=== PATIENT | female | born 1960 | race Caucasian/White ===

== ENCOUNTER 2018-07-29 20:11 | Emergency (ER) | payer OTHER, SELFPAY ==
[2018-07-29 20:20] VITALS: BP 100/64; PULSE 116; RESP 19; TEMP 38.3; O2SAT 90; BMI 27.4
--- NOTE | 2018-07-29 20:36 | DI.RAD.S_ITS ---
PROCEDURE: XR CHEST 1V INDICATIONS: suspected sepsis TECHNIQUE: One view of the chest was acquired. COMPARISON: [facility], , CHEST 2 VIEW, 04/17/2016, 11:07. FINDINGS: Surgical changes and devices: Lower neck surgical clips Lungs and pleura: Lungs are clear. No pleural effusions or pneumothorax. Mediastinum: Mediastinal contours appear normal. Heart size is normal. Bones and chest wall: No suspicious bony lesions. Overlying soft tissues appear unremarkable. IMPRESSION: No evidence acute pulmonary process. Dictated by: Will Araiza M.D. on 07/29/2018 at 21:21 Approved by: Will Araiza M.D. on 07/29/2018 at 21:21
--- NOTE | 2018-07-29 20:39 | ED_ITS ---
HPI - General Adult General Chief complaint: Dizziness Stated complaint: DIZZY LIGHT HEADED Time Seen by Provider: 07/29/18 20:38 Source: patient Mode of arrival: ambulatory Limitations: no limitations History of Present Illness HPI narrative: 58-year-old female who states that she has been sick since Franco's Day of this year reports today because she felt very tired and dizzy and lightheaded. She states just did not feel well. Did not take anything for her symptoms prior to arrival. Related Data Home Medications Medication Instructions Recorded Confirmed ALBUTEROL SULFATE (Ventolin / 2 puff INH Q 4H #0 05/20/08 Proventil) Loratadine (Claritin) 10 mg PO Q DAY #0 05/20/08 levothyroxine [Synthroid] 100 mcg PO QAM #0 05/20/08 atorvastatin [Lipitor] 10 mg PO HS #0 04/17/16 lisinopril 2.5 mg PO QDAY #0 04/17/16 metformin 850 mg PO BIDCC #0 04/17/16 montelukast 10 mg PO QDAY #0 04/17/16 Allergies Allergy/AdvReac Type Severity Reaction Status Date / Time No Known Drug Allergies Allergy Verified 07/29/18 21:07 Review of Systems Constitutional Reports chills, Reports fatigue, Reports fever(s), Denies headache(s), Reports lethargy, Reports malaise and Reports weakness ENT Ears, Nose, Mouth, and Throat: Denies headache(s) Cardiovascular Denies chest pain and Denies dyspnea Respiratory Denies dyspnea Gastrointestinal Gastrointestinal: Denies abdominal pain, Denies change in stool character, Denies nausea and Denies vomiting Genitourinary Denies dysuria Musculoskeletal Reports myalgias and Denies arthralgias Integumentary/Breasts Denies rash Neurologic Denies confusion, Denies headache(s) and Reports weakness Psychiatric Denies confusion Endocrine Reports fatigue Hematologic/Lymphatic Denies easy bleeding and Denies easy bruising Allergic/Immunologic Denies urticaria PFSH Medical History Hypertension (Acute) Hypothyroid (Acute) Social History Smoking Status: Never smoker Social History Smoking Status: Never smoker Exam Initial Vital Signs Initial Vital Signs: Vital Signs Temperature 101 F H 07/29/18 20:20 Pulse Rate 116 H 07/29/18 20:20 Respiratory Rate 19 07/29/18 20:20 Blood Pressure 100/64 07/29/18 20:20 Pulse Oximetry 90 L 07/29/18 20:20 Const General: cooperative, comfortable, well developed, well groomed and No acute distress Orientation: alert, awake and oriented x3 HENMT Head: normal to inspection and normocephalic Resp Effort & Inspection: normal respiratory effort Auscultation: clear to auscultation bilaterally Cardio Rate: tachycardic Rhythm: regular rhythm Pulses: radial pulses present GI Inspection: non-distended Palpation: soft Skin Lesions: no lesions Rashes: no rashes Neuro General: alert, awake and oriented x3 Cognition: normal cognition Speech: speech normal Gait: normal gait Motor: muscle tone normal throughout Sensory Exam: no sensory deficits noted Extrem General: normal to inspection and capillary refill normal Psych Appearance: grossly normal and well kempt Course Orders Ordered: ED Orders 07/29/18 20:40 Influenza A and B by PCR Rapid Stat 07/29/18 20:50 Complete Blood Count AUTO DIFF Stat Comprehensive Metabolic Panel Stat Lactate (Lactic Acid) Stat Lipase Stat Partial Thromboplastin Time Stat Procalcitonin Stat Prothrombin Time INR Stat 07/29/18 21:05 Blood Culture Stat Discontinued Medications Acetaminophen (Tylenol) 650 mg PO NOW ONE Stop: 07/29/18 20:41 Last Admin: 07/29/18 21:08 Dose: 650 mg Sodium Chloride (Normal Saline 0.9%) 1,000 mls @ 1,000 mls/hr IV BOLUS ONE Stop: 07/29/18 21:33 Last Infusion: 07/29/18 22:50 Dose: 0 mls/hr Admin: 07/29/18 21:08 Dose: 1,000 mls/hr Vital Signs - 8 hr 07/29/18 22:29 07/29/18 22:32 07/29/18 22:47 Temperature 99.2 F 99.2 F Pulse Rate 96 H 99 H 91 H Respiratory Rate 17 18 18 Blood Pressure [Right Arm] 105/63 86/56 L 98/65 Pulse Oximetry 92 100 96 07/29/18 22:50 Temperature 99.2 F Pulse Rate Respiratory Rate Blood Pressure [Right Arm] Pulse Oximetry Medical Decision Making Lab Data Lab results reviewed: Yes I reviewed the patient's lab results. Result diagrams: 07/29/18 20:50 07/29/18 20:50 Lab Results 07/29/18 07/29/18 07/29/18 Range/Units 20:40 20:50 20:50 WBC 11.6 H (4.5-11.0) X10^3/uL RBC 4.93 (4.0-5.2) X10^6/uL Hgb 14.2 (12.0-16.0) g/dL Hct 43.7 (36-46) % MCV 88.6 (80-100) fL MCH 28.7 (26-34) PG MCHC 32.4 (30-36) % RDW 13.5 (11.6-14.8) % Plt Count 231 (150-400) X10^3/uL Neut % (Auto) 85.6 H (50-75) % Lymph % (Auto) 5.3 L (25-40) % [place] % (Auto) 7.3 (3-14) % Eos % (Auto) 1.5 L (2-4) % Baso % (Auto) 0.3 (0-2) % Neut # (Auto) 9900 H (0675-2405) /uL Lymph # (Auto) 600 L (5890-6830) /uL [place] # (Auto) 800 (0-900) /uL Eos # (Auto) 200 (0-450) /uL Baso # (Auto) 0 (0-100) /uL PT 11.5 (10.1-12.7) SECONDS INR 1.0 (0.9-1.3) APTT 29 (26.4-36.2) SECONDS Sodium (137-145) mmol/L Potassium (3.4-5.1) mmol/L Chloride (98-107) mmol/L Carbon Dioxide (22-32) mmol/L BUN (7-17) mg/dL Creatinine (0.52-1.04) mg/dL Estimated GFR (>60) mL/min BUN/Creatinine Ratio (6-22) Glucose (70-100) mg/dL Lactate (0.7-2.1) mmol/L Calcium (8.4-10.2) mg/dL Total Bilirubin (0.2-1.3) mg/dL AST (14-36) IU/L ALT (9-52) IU/L Alkaline Phosphatase (38-126) U/L Total Protein (6.3-8.2) g/dL Albumin (3.5-5.0) g/dL Globulin (1.7-4.1) g/dL Albumin/Globulin Ratio (1.0-2.8) Lipase (23-300) U/L Procalcitonin (<0.5) ng/mL Influenza A & B (PCR) Negative (Negative) 07/29/18 07/29/18 07/29/18 Range/Units 20:50 20:50 20:50 WBC (4.5-11.0) X10^3/uL RBC (4.0-5.2) X10^6/uL Hgb (12.0-16.0) g/dL Hct (36-46) % MCV (80-100) fL MCH (26-34) PG MCHC (30-36) % RDW (11.6-14.8) % Plt Count (150-400) X10^3/uL Neut % (Auto) (50-75) % Lymph % (Auto) (25-40) % [place] % (Auto) (3-14) % Eos % (Auto) (2-4) % Baso % (Auto) (0-2) % Neut # (Auto) (4225-0657) /uL Lymph # (Auto) (5178-7257) /uL [place] # (Auto) (0-900) /uL Eos # (Auto) (0-450) /uL Baso # (Auto) (0-100) /uL PT (10.1-12.7) SECONDS INR (0.9-1.3) APTT (26.4-36.2) SECONDS Sodium 135 L (137-145) mmol/L Potassium 4.0 (3.4-5.1) mmol/L Chloride 95 L (98-107) mmol/L Carbon Dioxide 28 (22-32) mmol/L BUN 13 (7-17) mg/dL Creatinine 0.60 (0.52-1.04) mg/dL Estimated GFR > 60.0 (>60) mL/min BUN/Creatinine Ratio 21.7 (6-22) Glucose 171 H (70-100) mg/dL Lactate 1.8 (0.7-2.1) mmol/L Calcium 9.5 (8.4-10.2) mg/dL Total Bilirubin 0.8 (0.2-1.3) mg/dL AST 28 (14-36) IU/L ALT 39 (9-52) IU/L Alkaline Phosphatase 77 (38-126) U/L Total Protein 7.5 (6.3-8.2) g/dL Albumin 4.5 (3.5-5.0) g/dL Globulin 3.0 (1.7-4.1) g/dL Albumin/Globulin Ratio 1.5 (1.0-2.8) Lipase 115 (23-300) U/L Procalcitonin 0.06 (<0.5) ng/mL Influenza A & B (PCR) (Negative) Urine Dip Bedside Urine Glucose Negative Bedside Urine Bilirubin - Negative Bedside Urine Ketone - Negative Urine Specific [place] 1.025 Bedside Urine Occult Blood - Negative Bedside Urine pH 6.0 Bedside Urine Protein +/- 15 Bedside Urine Urobilinogen - Negative Bedside Urine Nitrite - Negative Bedside Urine Leukocytes - Negative Esterase Point of care testing: Urine Dip Bedside Urine Glucose Negative Bedside Urine Bilirubin - Negative Bedside Urine Ketone - Negative Urine Specific [place] 1.025 Bedside Urine Occult Blood - Negative Bedside Urine pH 6.0 Bedside Urine Protein +/- 15 Bedside Urine Urobilinogen - Negative Bedside Urine Nitrite - Negative Bedside Urine Leukocytes - Negative Esterase Imaging Data Chest x-ray: Radiologist's impression: Patient: Radha Muñoz [facility]#: [id number] : 1960Acct:[id number] Age/Sex: 58 / FDate of Service: 07/29/18 Loc: ED Accession Number: [id number] Procedure: XR chest 1V Ordering Provider: Hal Nolan D.O. PROCEDURE: XR CHEST 1V INDICATIONS: suspected sepsis TECHNIQUE: One view of the chest was acquired. COMPARISON: [facility], , CHEST 2 VIEW, 04/17/2016, 11:07. FINDINGS: Surgical changes and devices: Lower neck surgical clips Lungs and pleura: Lungs are clear. No pleural effusions or pneumothorax. Mediastinum: Mediastinal contours appear normal. Heart size is normal. Bones and chest wall: No suspicious bony lesions. Overlying soft tissues appear unremarkable. IMPRESSION: No evidence acute pulmonary process. Dictated by: Will Araiza M.D. on 07/29/2018 at 21:21 Approved by: Will Araiza M.D. on 07/29/2018 at 21:21 ECG Data Attestation: I personally reviewed and interpreted this ECG as follows: Prior ECG tracings: not available for review Interpretation: Sinus tachycardia ventricular rate of 116 normal axis Normal QRS Normal QTC No ST T wave changes MDM Narrative Medical decision making narrative: patient's chest x-ray is unremarkable, urine is unremarkable, has a benign abdominal exam, no skin changes concerning for cellulitis, flu is negative. Lactate unremarkable, procalcitonin is unremarkable. Patient states she felt much better after the fluids and the Tylenol here in the ER. Her heart rate was less than 100 after the fluids. Blood cultures were obtained. I do not have a source of infection however doubt sepsis. Will hold on any antibiotics for now. Patient was given return precautions. She expressed understanding and agreement plan. Discharge Plan Departure Patient Disposition: Home Clinical Impression: Fever Qualifiers: Fever type: unspecified Qualified Code(s): R50.9 - Fever, unspecified Discharge Date/Time: 07/29/18 22:52 Interventions: ED Discharge Assessment Last Done: 07/29/18 22:48 Instructions: DI for Fever (Symptom) -- Adult Activity Restrictions/Additional Instructions: Take Tylenol and/or Motrin for any fevers. Be sure you are increase your fluid intake. Return to the emergency department for any new or worsening symptoms Prescriptions: No Action levothyroxine [Synthroid] 100 MCG tablet 100 mcg PO QAM Qty: 0 RF: 0 Loratadine (Claritin) 10 mg PO Q DAY Qty: 0 RF: 0 ALBUTEROL SULFATE (Ventolin / Proventil) 2 puff INH Q 4H Qty: 0 RF: 0 atorvastatin [Lipitor] 10 MG tablet 10 mg PO HS Qty: 0 RF: 0 metformin 850 MG tablet 850 mg PO BIDCC Qty: 0 RF: 0 montelukast 10 MG tablet 10 mg PO QDAY Qty: 0 RF: 0 lisinopril 2.5 MG tablet 2.5 mg PO QDAY Qty: 0 RF: 0 Stand Alone Forms: Work Release Note
[2018-07-29 21:00] VITALS: BP 95/52; PULSE 115; RESP 22; O2SAT 90
[2018-07-29 21:01] LABS: Add Manual Diff / Slide Review NO; Basophils Absolute Auto 0 /uL (0-100); Basophils Percent Auto 0.3 % (0-2); Eosinophils Absolute Auto 200 /uL (0-450); Eosinophils Percent Auto 1.5 % (2-4); Hematocrit 43.7 % (36-46); Hemoglobin 14.2 g/dL (12.0-16.0); Lymphocytes Absolute Auto 600 /uL (1100-4500); Lymphocytes Percent Auto 5.3 % (25-40); Mean Corpuscular HGB Conc 32.4 % (30-36); Mean Corpuscular Hemoglobin 28.7 PG (26-34); Mean Corpuscular Volume 88.6 fL (80-100); Monocytes Absolute Auto 800 /uL (0-900); Monocytes Percent Auto 7.3 % (3-14); Neutrophils Absolute Auto 9900 /uL (1500-7000); Neutrophils Percent Auto 85.6 % (50-75); Platelet Count 231 X10^3/uL (150-400); Red Blood Cell Count 4.93 X10^6/uL (4.0-5.2); Red Cell Distribution Width 13.5 % (11.6-14.8); White Blood Cell Count 11.6 X10^3/uL (4.5-11.0)
[2018-07-29] MEDS: ACETAMINOPHEN 325 MG TABLET 650 MG PO (21:08)
[2018-07-29] MEDS: SODIUM CHLORIDE 0.9% 1,000 ML 1000 ML IV (21:08)
[2018-07-29 21:12] LABS: Prothrombin Time 11.5 SECONDS (10.1-12.7)
[2018-07-29 21:15] LABS: Influenza A and B by PCR Rapid Negative (Negative)
[2018-07-29 21:15] LABS: PTT Partial Thromboplastin Tim 29 SECONDS (26.4-36.2)
[2018-07-29 21:18] LABS: Lactate (Lactic Acid) 1.8 mmol/L (0.7-2.1)
[2018-07-29 21:19] LABS: Alanine Aminotransferase 39 IU/L (9-52); Albumin 4.5 g/dL (3.5-5.0); Albumin Globulin Ratio 1.5 (1.0-2.8); Alkaline Phosphatase 77 U/L (38-126); Aspartate Aminotransferase 28 IU/L (14-36); BUN Creatinine Ratio 21.7 (6-22); Bilirubin Total 0.8 mg/dL (0.2-1.3); Blood Urea Nitrogen 13 mg/dL (7-17); Calcium 9.5 mg/dL (8.4-10.2); Carbon Dioxide 28 mmol/L (22-32); Chloride 95 mmol/L (98-107); Estimated Glomerular Filt Rate > 60.0 mL/min (>60); Glucose 171 mg/dL (70-100); HEMOLYSIS < 15 (0-50); Lipase 115 U/L (23-300); Sodium 135 mmol/L (137-145); Total Protein 7.5 g/dL (6.3-8.2)
[2018-07-29 21:42] LABS: Procalcitonin 0.06 ng/mL (<0.5)
[2018-07-29 22:29] VITALS: BP 105/63; PULSE 96; RESP 17; TEMP 37.3; O2SAT 92
[2018-07-29 22:32] VITALS: BP 86/56; PULSE 99; RESP 18; TEMP 37.3; O2SAT 100
[2018-07-29 22:47] VITALS: BP 98/65; PULSE 91; RESP 18; O2SAT 96
[2018-07-29 22:50] VITALS: TEMP 37.3
== END 2018-07-29 22:52 | disposition home or self-care (01) ==
PROVIDERS: Emergency Provider Emergency Medicine
DX: R50.9 Fever, unspecified (principal); R00.0 Tachycardia, unspecified
CPT/HCPCS: 36415; 36591; 71045; 80053; 81003; 83605; 83690; 84145; 85025; 85610; 85730; 87040; 87400; 93005; 93010; 96360; 96361; 99284; 99285

== ENCOUNTER 2018-11-23 03:56 | Emergency (ER) | payer OTHER, SELFPAY ==
[2018-11-23 04:05] VITALS: BP 126/66; PULSE 104; RESP 18; TEMP 36.6; O2SAT 90; BMI 28.3
--- NOTE | 2018-11-23 04:11 | DI.RAD.S_ITS ---
PROCEDURE: XR CHEST 2V INDICATIONS: Shortness of breath / cough TECHNIQUE: 2 views of the chest were acquired. COMPARISON: [facility], CR, XR CHEST 1V, 07/29/2018, 20:40. FINDINGS: Surgical changes and devices: Surgical clips are redemonstrated at the thoracic inlet. Lungs and pleura: Patchy pulmonary opacities are present at the left lung base which are new when compared with the study dated 07/29/18. These are likely within the lingular base. The right lung is clear. No pleural effusion or pneumothorax. Mediastinum: Mediastinal contours are normal. Heart size is normal. Bones and chest wall: No suspicious bony abnormalities. Soft tissues appear unremarkable. IMPRESSION: Trace pulmonary radiopacities presumably within the lingula. Differential considerations include aspiration, infection, and atelectasis. Dictated by: Maryjane Prado M.D. on 11/23/2018 at 8:13 Approved by: Maryjane Prado M.D. on 11/23/2018 at 8:14
[2018-11-23 04:15] VITALS: PULSE 95; RESP 18; O2SAT 93
[2018-11-23] MEDS: ALBUTEROL/IPRATROPIUM 3 ML AMPUL INH (04:17)
[2018-11-23 04:23] VITALS: O2SAT 92
--- NOTE | 2018-11-23 04:26 | ED.ASTHMA ---
HPI - Asthma General Chief Complaint: Asthma Stated Complaint: scratchy throat headache feels lungs have fluid Time Seen by Provider: 11/23/18 03:58 Source: patient Mode of arrival: ambulatory Limitations: no limitations History of Present Illness HPI Narrative: 58-year-old female nonsmoker with history of asthma presents with difficulty in breathing, wheeze, shortness of breath since motor longer earlier in the day. She denies any fever chills. She vomited once after and extensive coughing fit. She has been using her Proventil at home without much in the way of relief. MD complaint: asthma attack and wheezing Onset (ago): hour(s) Severity: moderate Context: allergen exposure Associated symptoms: productive cough Asthma History: childhood onset Treatments Prior to Arrival: inhaled bronchodilator Related Data Current Asthma Therapy: inhaled bronchodilator Home Medications Medication Instructions Recorded Confirmed ALBUTEROL SULFATE (Ventolin / 2 puff INH Q 4H #0 05/20/08 Proventil) Loratadine (Claritin) 10 mg PO Q DAY #0 05/20/08 levothyroxine [Synthroid] 100 mcg PO QAM #0 05/20/08 atorvastatin [Lipitor] 10 mg PO HS #0 04/17/16 lisinopril 2.5 mg PO QDAY #0 04/17/16 metformin 850 mg PO BIDCC #0 04/17/16 montelukast 10 mg PO QDAY #0 04/17/16 Previous Rx's Medication Instructions Recorded doxycycline hyclate 100 mg PO BID #20 tab 11/23/18 prednisone 20 mg PO DAILY #5 tab 11/23/18 Allergies Allergy/AdvReac Type Severity Reaction Status Date / Time No Known Drug Allergies Allergy Verified 11/23/18 04:23 Review of Systems Constitutional Denies chills, Denies fever(s), Denies lethargy and Denies weakness Eyes Denies change in vision, Denies eye discharge, Denies irritation and Denies loss of vision ENT Ears, Nose, Mouth, and Throat: Denies change in voice, Denies neck pain and Denies sore throat Cardiovascular Denies chest pain, Denies irregular heart rhythm, Denies lightheadedness, Denies palpitations, Reports dyspnea, Denies dyspnea on exertion and Denies orthopnea Respiratory Reports cough, Reports pain with cough, Reports dyspnea, Denies dyspnea on exertion and Reports wheezing Gastrointestinal Gastrointestinal: Denies abdominal pain, Denies change in bowel habits, Denies diarrhea, Denies nausea and Denies vomiting Genitourinary Denies hematuria, Denies flank pain, Denies urinary incontinence and Denies urinary urgency Musculoskeletal Denies neck pain Integumentary/Breasts Denies pruritus, Denies erythema, Denies rash and Denies wounds Neurologic Denies confusion, Denies loss of vision and Denies weakness Psychiatric Denies anxiety, Denies confusion, Denies depression, Denies homicidal ideation and Denies suicidal ideation Endocrine Denies palpitations Hematologic/Lymphatic Denies easy bruising Allergic/Immunologic Reports wheezing Exam Narrative Exam Narrative: GENERAL: 58-year-old female appears stated age, prolonged expiratory phase with expiratory wheeze HEAD: Atraumatic. Normocephalic. No temporal or scalp tenderness. EYES: Pupils equal round and reactive. Extraocular motions intact. No scleral icterus. No injection or drainage. ENT: Nose without bleeding, purulent drainage or septal hematoma. Throat without erythema, tonsillar hypertrophy or exudate. Uvula midline. Airway patent. NECK: Trachea midline. No JVD or lymphadenopathy. Supple, nontender, no meningeal signs. CARDIOVASCULAR: Regular rate and rhythm without murmurs, gallops, or rubs. RESPIRATORY: Prolonged expiratory phase with wheezes in all wang, decreased breath sounds throughout. No rales or rhonchi GASTROINTESTINAL: Abdomen soft, non-tender, nondistended. No hepato-splenomegaly, or palpable masses. No guarding. EXTREMITIES: No clubbing, cyanosis, or edema. No joint tenderness, effusion, or edema noted. BACK: Nontender without deformity or crepitance. No flank tenderness. NEURO: AOx3. SKIN: No rash or erythema. Initial Vital Signs Initial Vital Signs: Vital Signs Temperature 97.9 F 11/23/18 04:05 Pulse Rate 104 H 11/23/18 04:05 Respiratory Rate 18 11/23/18 04:05 Blood Pressure 126/66 11/23/18 04:05 Pulse Oximetry 90 L 11/23/18 04:05 [facility] Medical History Hypertension (Acute) Hypothyroid (Acute) Social History Smoking Status: Never smoker Social History Smoking Status: Never smoker Course Orders Ordered: ED Orders 11/23/18 04:11 Consult to Respiratory Therapy Evaluate & Treat XR chest 2V Stat 11/23/18 04:15 B Type Natriuretic Peptide Stat Basic Metabolic Panel Stat Complete Blood Count AUTO DIFF Stat Lactate (Lactic Acid) Stat Magnesium Stat Procalcitonin Stat Troponin & CK Cardiac Panel Stat 11/23/18 04:35 Blood Culture Stat Discontinued Medications Albuterol/Ipratropium (Duoneb) 3 ml INH NOW ONE Stop: 11/23/18 04:11 Last Admin: 11/23/18 04:17 Dose: 3 ml Methylprednisolone (Solu-Medrol 125 Mg Vial) 125 mg IV NOW ONE Stop: 11/23/18 04:11 Last Admin: 11/23/18 04:28 Dose: 125 mg Reevaluation(s) Reevaluation #1: tremendous improvement after the above stated therapies Vital Signs - 8 hr 11/23/18 04:05 11/23/18 04:15 11/23/18 04:23 Temperature 97.9 F Pulse Rate 104 H 95 H Respiratory Rate 18 18 Blood Pressure 126/66 Blood Pressure [Left Arm] Pulse Oximetry 90 L 93 92 11/23/18 04:38 Temperature Pulse Rate 92 H Respiratory Rate 19 Blood Pressure Blood Pressure [Left Arm] 115/75 Pulse Oximetry 92 MDM - Asthma Lab Data Result diagrams: 11/23/18 04:15 11/23/18 04:15 Lab Results 11/23/18 11/23/18 11/23/18 Range/Units 04:15 04:15 04:15 WBC 9.8 (4.5-11.0) X10^3/uL RBC 4.89 (4.0-5.2) X10^6/uL Hgb 14.4 (12.0-16.0) g/dL Hct 43.2 (36-46) % MCV 88.4 (80-100) fL MCH 29.4 (26-34) PG MCHC 33.3 (30-36) % RDW 13.4 (11.6-14.8) % Plt Count 251 (150-400) X10^3/uL Neut % (Auto) 73.3 (50-75) % Lymph % (Auto) 18.3 L (25-40) % [place] % (Auto) 5.9 (3-14) % Eos % (Auto) 2.1 (2-4) % Baso % (Auto) 0.4 (0-2) % Neut # (Auto) 7200 H (0531-5856) /uL Lymph # (Auto) 1800 (2257-7595) /uL [place] # (Auto) 600 (0-900) /uL Eos # (Auto) 200 (0-450) /uL Baso # (Auto) 0 (0-100) /uL Sodium 141 (137-145) mmol/L Potassium 3.8 (3.4-5.1) mmol/L Chloride 101 (98-107) mmol/L Carbon Dioxide 31 (22-32) mmol/L BUN 13 (7-17) mg/dL Creatinine 0.50 L (0.52-1.04) mg/dL Estimated GFR > 60.0 (>60) mL/min BUN/Creatinine Ratio 26.0 H (6-22) Glucose 173 H (70-100) mg/dL Lactate (0.7-2.1) mmol/L Calcium 9.2 (8.4-10.2) mg/dL Magnesium 1.8 (1.6-2.3) mg/dL Total Creatine Kinase 26 L (30-135) U/L CK-MB (CK-2) TNP CK-MB (CK-2) Rel Index TNP Troponin I < 0.012 (0.01-0.034) ng/mL B-Natriuretic Peptide < 100 (<100) Procalcitonin < 0.05 (<0.5) ng/mL 11/23/18 Range/Units 04:15 WBC (4.5-11.0) X10^3/uL RBC (4.0-5.2) X10^6/uL Hgb (12.0-16.0) g/dL Hct (36-46) % MCV (80-100) fL MCH (26-34) PG MCHC (30-36) % RDW (11.6-14.8) % Plt Count (150-400) X10^3/uL Neut % (Auto) (50-75) % Lymph % (Auto) (25-40) % [place] % (Auto) (3-14) % Eos % (Auto) (2-4) % Baso % (Auto) (0-2) % Neut # (Auto) (1762-7531) /uL Lymph # (Auto) (0960-2300) /uL [place] # (Auto) (0-900) /uL Eos # (Auto) (0-450) /uL Baso # (Auto) (0-100) /uL Sodium (137-145) mmol/L Potassium (3.4-5.1) mmol/L Chloride (98-107) mmol/L Carbon Dioxide (22-32) mmol/L BUN (7-17) mg/dL Creatinine (0.52-1.04) mg/dL Estimated GFR (>60) mL/min BUN/Creatinine Ratio (6-22) Glucose (70-100) mg/dL Lactate 1.9 (0.7-2.1) mmol/L Calcium (8.4-10.2) mg/dL Magnesium (1.6-2.3) mg/dL Total Creatine Kinase (30-135) U/L CK-MB (CK-2) CK-MB (CK-2) Rel Index Troponin I (0.01-0.034) ng/mL B-Natriuretic Peptide (<100) Procalcitonin (<0.5) ng/mL Discharge Plan Departure Patient Disposition: Home Clinical Impression: Asthma with acute exacerbation Qualifiers: Asthma severity: moderate Asthma persistence: unspecified Qualified Code(s): J45.901 - Unspecified asthma with (acute) exacerbation Pneumonia Qualifiers: Pneumonia type: due to unspecified organism Laterality: left Lung location: lower lobe of lung Qualified Code(s): J18.1 - Lobar pneumonia, unspecified organism Instructions: DI for Asthma -- Adult Activity Restrictions/Additional Instructions: *You have been diagnosed with [asthma exacerbation, possible pneumonia] *What to do: *Take medications as directed *Follow up with your primary care provider in 2-3 days, call for an appointment. Let them know you were seen in the Emergency Department and that we ask that you be seen in follow up *Return to ER if you should have any new, worsening or concerning symptoms Prescriptions: New doxycycline hyclate 100 mg tablet 100 mg PO BID Qty: 20 RF: 0 prednisone 20 mg tablet 20 mg PO DAILY Qty: 5 RF: 0 No Action levothyroxine [Synthroid] 100 MCG tablet 100 mcg PO QAM Qty: 0 RF: 0 Loratadine (Claritin) 10 mg PO Q DAY Qty: 0 RF: 0 ALBUTEROL SULFATE (Ventolin / Proventil) 2 puff INH Q 4H Qty: 0 RF: 0 atorvastatin [Lipitor] 10 MG tablet 10 mg PO HS Qty: 0 RF: 0 metformin 850 MG tablet 850 mg PO BIDCC Qty: 0 RF: 0 montelukast 10 MG tablet 10 mg PO QDAY Qty: 0 RF: 0 lisinopril 2.5 MG tablet 2.5 mg PO QDAY Qty: 0 RF: 0
[2018-11-23] MEDS: methylPREDNISolone 125 MG/2 ML VIAL IV (04:28)
[2018-11-23 04:37] LABS: Add Manual Diff / Slide Review NO; Basophils Absolute Auto 0 /uL (0-100); Basophils Percent Auto 0.4 % (0-2); Eosinophils Absolute Auto 200 /uL (0-450); Eosinophils Percent Auto 2.1 % (2-4); Hematocrit 43.2 % (36-46); Hemoglobin 14.4 g/dL (12.0-16.0); Lymphocytes Absolute Auto 1800 /uL (1100-4500); Lymphocytes Percent Auto 18.3 % (25-40); Mean Corpuscular HGB Conc 33.3 % (30-36); Mean Corpuscular Hemoglobin 29.4 PG (26-34); Mean Corpuscular Volume 88.4 fL (80-100); Monocytes Absolute Auto 600 /uL (0-900); Monocytes Percent Auto 5.9 % (3-14); Neutrophils Absolute Auto 7200 /uL (1500-7000); Neutrophils Percent Auto 73.3 % (50-75); Platelet Count 251 X10^3/uL (150-400); Red Blood Cell Count 4.89 X10^6/uL (4.0-5.2); Red Cell Distribution Width 13.4 % (11.6-14.8); White Blood Cell Count 9.8 X10^3/uL (4.5-11.0)
[2018-11-23 04:38] VITALS: BP 115/75; PULSE 92; RESP 19; O2SAT 92
[2018-11-23 04:41] LABS: Lactate (Lactic Acid) 1.9 mmol/L (0.7-2.1)
[2018-11-23 04:42] LABS: Blood Urea Nitrogen 13 mg/dL (7-17); Calcium 9.2 mg/dL (8.4-10.2); Carbon Dioxide 31 mmol/L (22-32); Chloride 101 mmol/L (98-107); Creatine Kinase 26 U/L (30-135); Estimated Glomerular Filt Rate > 60.0 mL/min (>60); Glucose 173 mg/dL (70-100); HEMOLYSIS < 15 (0-50); Magnesium 1.8 mg/dL (1.6-2.3); Potassium 3.8 mmol/L (3.4-5.1); Sodium 141 mmol/L (137-145)
[2018-11-23 04:53] LABS: Troponin I < 0.012 ng/mL (0.01-0.034)
[2018-11-23 05:04] LABS: B Type Natriuretic Peptide < 100 (<100)
[2018-11-23 05:10] LABS: Procalcitonin < 0.05 ng/mL (<0.5)
[2018-11-23 06:06] VITALS: BP 115/75; PULSE 96; RESP 20; O2SAT 93
== END 2018-11-23 06:07 | disposition home or self-care (01) ==
PROVIDERS: Emergency Provider Emergency Medicine
DX: J45.901 Unspecified asthma with (acute) exacerbation (principal); J18.1 Lobar pneumonia, unspecified organism
CPT/HCPCS: 36415; 36591; 71046; 80048; 82550; 83605; 83735; 83880; 84145; 84484; 85025; 87040; 94640; 96374; 99283; 99284; J2930

== ENCOUNTER 2019-08-13 08:44 | Emergency (ER) | payer OTHER, SELFPAY ==
--- NOTE | 2019-08-13 08:51 | ED.ASTHMA ---
HPI - Asthma General Chief Complaint: Shortness of Breath/Dyspnea Stated Complaint: asthma Time Seen by Provider: 08/13/19 08:45 Source: patient Mode of arrival: Ambulatory Limitations: no limitations History of Present Illness HPI Narrative: 59-year-old female nonsmoker with history of asthma presents with increasing shortness of breath and cough for the past 2 days. Patient denies any recent travel or exposure to persons under suspicion for drawn about hours. She has had no headache or sore throat. She denies any chest pain, nausea, vomiting or diarrhea. She has been using her albuterol at home and is hoping for a prescription for prednisone. Patient states her baseline pulse ox is upper 80s to low 90s on a good day. MD complaint: asthma attack and shortness of breath Onset (ago): day(s) Severity: moderate Context: none known Associated symptoms: dry cough Treatments Prior to Arrival: inhaled bronchodilator Related Data Current Asthma Therapy: inhaled bronchodilator Home Medications Medication Instructions Recorded Confirmed ALBUTEROL SULFATE (Ventolin / 2 puff INH Q 4H #0 05/20/08 Proventil) Loratadine (Claritin) 10 mg PO Q DAY #0 05/20/08 levothyroxine [Synthroid] 100 mcg PO QAM #0 05/20/08 atorvastatin [Lipitor] 10 mg PO HS #0 04/17/16 lisinopril 2.5 mg PO QDAY #0 04/17/16 metformin 850 mg PO BIDCC #0 04/17/16 montelukast 10 mg PO QDAY #0 04/17/16 Previous Rx's Medication Instructions Recorded doxycycline hyclate 100 mg PO BID #20 tab 11/23/18 prednisone 20 mg PO DAILY #5 tab 11/23/18 albuterol sulfate 2 inh INHALATION Q4H PRN #1 each 08/13/19 prednisone 20 mg PO DAILY #5 tab 08/13/19 Allergies Allergy/AdvReac Type Severity Reaction Status Date / Time No Known Drug Allergies Allergy Verified 11/23/18 04:23 Review of Systems Constitutional Constitutional: Denies chills, Denies fatigue, Denies fever(s), Denies frequent falls, Denies lethargy and Denies weakness Eyes Eyes: Denies change in vision, Denies eye discharge, Denies irritation and Denies loss of vision ENT Ears, Nose, Mouth, and Throat: Denies change in voice, Denies dizziness, Denies neck pain, Denies sore throat and Denies throat swelling Cardiovascular Cardiovascular: Denies chest pain, Denies irregular heart rhythm, Denies lightheadedness, Denies palpitations, Reports dyspnea, Denies dyspnea on exertion and Denies orthopnea Respiratory Respiratory: Reports cough, Reports dyspnea, Denies dyspnea on exertion and Reports wheezing Gastrointestinal Gastrointestinal: Denies abdominal pain, Denies change in bowel habits, Denies diarrhea, Denies nausea and Denies vomiting Genitourinary Genitourinary: Denies hematuria, Denies flank pain, Denies urinary incontinence and Denies urinary urgency Musculoskeletal Musculoskeletal: Denies back pain, Denies muscle weakness, Denies neck pain, Denies numbness and Denies tingling Integumentary/Breasts Skin/Breast: Denies pruritus, Denies erythema, Denies rash and Denies wounds Neurologic Neurologic: Denies behavioral changes, Denies confusion, Denies dizziness, Denies frequent falls, Denies loss of vision, Denies numbness, Denies tingling and Denies weakness Psychiatric Psychiatric: Denies anxiety, Denies behavioral changes, Denies confusion, Denies depression, Denies homicidal ideation and Denies suicidal ideation Endocrine Endocrine: Denies fatigue, Denies flushing and Denies palpitations Hematologic/Lymphatic Hematologic/Lymphatic: Denies easy bruising Allergic/Immunologic Allergic/Immunologic: Denies urticaria, Denies throat swelling and Reports wheezing Patient History Medical History Hypertension (Acute) Hypothyroid (Acute) Social History Smoking Status: Never smoker Smoking Status: Never smoker Substance Use Type: does not use Exam Narrative Exam Narrative: GENERAL: [59] year old patient appears stated age. Well-nourished, well-developed patient, in mild distress. HEAD: Atraumatic. Normocephalic. EYES: Pupils equal round and reactive. Extraocular motions intact. No scleral icterus. No injection or drainage. ENT: Nose without bleeding, purulent drainage. Throat without erythema, tonsillar hypertrophy or exudate. Airway patent. NECK: Trachea midline. Non tender CARDIOVASCULAR: Regular rate and rhythm without murmurs, gallops, or rubs. RESPIRATORY: Decreased breath sounds bilaterally with prolonged expiratory phase and expiratory wheeze GASTROINTESTINAL: Abdomen soft, non-tender, nondistended. EXTREMITIES: No edema or joint tenderness. BACK: Nontender without deformity or crepitance. No flank tenderness. NEURO: AOx3. SKIN: No rash or erythema of visible areas Initial Vital Signs Initial Vital Signs: Vital Signs Temperature 99.1 F 08/13/19 09:03 Pulse Rate 113 H 08/13/19 09:03 Respiratory Rate 24 08/13/19 09:03 Blood Pressure 135/86 08/13/19 09:03 Pulse Oximetry 90 L 08/13/19 09:03 Course Orders Ordered: ED Orders 08/13/19 09:18 XR chest 1V Stat 08/13/19 09:20 Influenza A & B (PCR) Stat 08/13/19 10:37 CT chest wo con Stat Discontinued Medications Prednisone (Deltasone) 40 mg PO NOW ONE Stop: 08/13/19 09:19 Last Admin: 08/13/19 09:27 Dose: 40 mg Documented by: ANTONELLA Vital Signs Vital signs: Vital Signs - 8 hr 08/13/19 09:03 08/13/19 11:29 Temperature 99.1 F Pulse Rate 113 H 105 H Respiratory Rate 24 16 Blood Pressure 135/86 Blood Pressure [Right Arm] 129/75 Pulse Oximetry 90 L 89 L MDM - Asthma Lab Data Labs: Lab Results 08/13/19 Range/Units 09:20 Influenza A (RT-PCR) Flu a negative (NEGATIVE) Influenza B (RT-PCR) Flu b negative (NEGATIVE) Imaging Data Chest x-ray: Radiologist's Impression: Radha Muñoz Cheko 59 F [address] [address] XRay Report Signed Patient: Radha Muñoz AMR#: [id number] : 1960Acct:[id number] Age/Sex: 59 / FDate of Service: 08/13/19 Loc: ED Accession Number: [id number] Procedure: XR chest 1V Ordering Provider: Max Camacho D.O. PROCEDURE: XR CHEST 1V INDICATIONS: cough TECHNIQUE: One view of the chest was acquired. COMPARISON: [facility], CR, XR CHEST 1V, 07/29/2018, 20:40. [facility], CR, XR CHEST 2V, 11/23/2018, 4:27. FINDINGS: Surgical changes and devices: Post surgical changes at the base of the neck are present. Lungs and pleura: Mild consolidation at the left lung base is identified, which is similar to the prior study, but new since 07/29/18. No effusion or pneumothorax is evident. Mediastinum: Mediastinal contours appear normal. Heart size is normal. Bones and chest wall: No suspicious bony lesions. Overlying soft tissues appear unremarkable. IMPRESSION: Atelectasis versus pneumonia at the left lung base. Dictated by: Richy Corral M.D. on 08/13/2019 at 9:09 Approved by: Richy Corral M.D. on 08/13/2019 at 9:10 CT scan - chest: Radiologist's Impression: Radha Muñoz 59 F 1960 [place] [address] CT Scan Report Signed Patient: Radha Muñoz AMR#: [id number] : 1960Acct:[id number] Age/Sex: 59 / FDate of Service: 08/13/19 Loc: ED Accession Number: [id number] Procedure: CT chest wo con Ordering Provider: Max Camacho D.O. PROCEDURE: CT CHEST WO CON INDICATIONS: fever, cough, SOB TECHNIQUE: Noncontrast 5 mm thick sections acquired from the pulmonary apices to the posterior costophrenic angles. 1 mm lung window, 5 mm thick coronal and sagittal and 7 mm axial MIP reformats were then acquired. For radiation dose reduction, the following was used: automated exposure control, adjustment of mA and/or kV according to patient size. COMPARISON: [facility], CR, XR CHEST 2V, 11/23/2018, 4:27. FINDINGS: Image quality: Diagnostic. Lungs and pleura: Patchy areas of groundglass attenuation are identified within it the lingula and right middle lobe. There may also be developing groundglass attenuation within the perihilar region of the right upper lobe. There may also be developing at patchy groundglass attenuation within the lateral margin of the left lower lobe. There is no lung mass. Mediastinum: Heart size is normal. No pericardial effusion. No mediastinal adenopathy by size criteria. Ever, borderline prominent mediastinal and hilar lymph nodes appear to be present. Thoracic aorta and central pulmonary arteries are normal in size. Esophagus is normal in caliber. No hiatal hernia. Bones and chest wall: No suspicious bony lesions. No vertebral body compression fractures. Postoperative changes at the base of the neck suggest prior thyroidectomy. No axillary or supraclavicular adenopathy by size criteria. Abdomen: Included portions of the upper abdomen demonstrate the liver to be hypodense when compared to the spleen. The liver may be enlarged. There is a questionable calcified gallstone. However, the gallbladder is not imaged. IMPRESSION: Subtle developing areas of groundglass attenuation within the lingula and right middle lobe suggests a developing multifocal atypical pneumonia. Please correlate clinically to exclude the possibility of COVID-19. Dictated by: Richy Corral M.D. on 08/13/2019 at 10:26 Approved by: Richy Corral M.D. on 08/13/2019 at 10:31 Discharge Plan Departure Patient Disposition: Home Clinical Impression: Viral pneumonia Asthma with exacerbation Qualifiers: Asthma severity: moderate Asthma persistence: persistent Qualified Code(s): J45.41 - Moderate persistent asthma with (acute) exacerbation Discharge Date/Time: 08/13/19 12:10 Instructions: Atypical Pneumonia Activity Restrictions/Additional Instructions: *You have been diagnosed with [ viral pneumonia, which based on your symptoms, labs and imaging is highly suspicious for coronavirus] *What to do: * per recommendations from the CDC and the [facility] Department of Health * stay home except to get medical care. Restrict activities outside your home, except for getting medical care. Do not go to work, school, or public areas. Avoid using public transportation, ride sharing, or taxis. * separate herself from other people in your home. * call ahead before visiting your doctor * Wear a facemask * Cover your coughs and sneezes * Clean your hands often * Avoid sharing household items * Clean all high-touch services every day * Monitor your symptoms and seek prompt medical attention if your illness is worsening, particularly with difficulty in breathing. Discussed continuing home isolation * for individuals with symptoms who are confirmed or suspected cases of COVID-19 and are directed to care for themselves at home, discontinue home isolation under the following conditions: 1. At least 72 hours have passed since recovery, defined as resolution of fever without the use of fever reducing medications, and improvement in respiratory symptoms (cough, shortness of breath) AND, 2. At least 7 days have passed since symptoms 1st appeared Individuals with laboratory confirmed COVID-19 who have not had any symptoms may discontinue home isolation when at least 7 days have passed since the date of their 1st COVID-19 diagnostic test and have had no subsequent illness Prescriptions: New prednisone 20 mg tablet 20 mg PO DAILY Qty: 5 RF: 0 albuterol sulfate 90 mcg/actuation aerosol powdr breath activated 2 inh INHALATION Q4H PRN (Reason: shortness of breath or wheezing) Qty: 1 RF: 0 No Action levothyroxine [Synthroid] 100 MCG tablet 100 mcg PO QAM Qty: 0 RF: 0 Loratadine (Claritin) 10 mg PO Q DAY Qty: 0 RF: 0 ALBUTEROL SULFATE (Ventolin / Proventil) 2 puff INH Q 4H Qty: 0 RF: 0 atorvastatin [Lipitor] 10 MG tablet 10 mg PO HS Qty: 0 RF: 0 metformin 850 MG tablet 850 mg PO BIDCC Qty: 0 RF: 0 montelukast 10 MG tablet 10 mg PO QDAY Qty: 0 RF: 0 lisinopril 2.5 MG tablet 2.5 mg PO QDAY Qty: 0 RF: 0 doxycycline hyclate 100 mg tablet 100 mg PO BID Qty: 20 RF: 0 prednisone 20 mg tablet 20 mg PO DAILY Qty: 5 RF: 0 Referrals: Miscellaneous,Doctor, [Primary Care Provider] - ED Sign-out Cosign ED Attending Cristiane Attestation: I was immediately available in the department for consultation. This documentation has been reviewed and I agree with assessment and plan. Supervised by Max Camacho DO
[2019-08-13 09:03] VITALS: BP 135/86; PULSE 113; RESP 24; TEMP 37.3; O2SAT 90
--- NOTE | 2019-08-13 09:18 | DI.RAD.S_ITS ---
PROCEDURE: XR CHEST 1V INDICATIONS: cough TECHNIQUE: One view of the chest was acquired. COMPARISON: [facility], CR, XR CHEST 1V, 07/29/2018, 20:40. [facility], CR, XR CHEST 2V, 11/23/2018, 4:27. FINDINGS: Surgical changes and devices: Post surgical changes at the base of the neck are present. Lungs and pleura: Mild consolidation at the left lung base is identified, which is similar to the prior study, but new since 07/29/18. No effusion or pneumothorax is evident. Mediastinum: Mediastinal contours appear normal. Heart size is normal. Bones and chest wall: No suspicious bony lesions. Overlying soft tissues appear unremarkable. IMPRESSION: Atelectasis versus pneumonia at the left lung base. Dictated by: Richy Corral M.D. on 08/13/2019 at 9:09 Approved by: Richy Corral M.D. on 08/13/2019 at 9:10
[2019-08-13] MEDS: predniSONE 20 MG TABLET 40 MG PO (09:27)
[2019-08-13 10:00] LABS: Influenza A - CEPHEID Flu A NEGATIVE (NEGATIVE); Influenza B - CEPHEID Flu B NEGATIVE (NEGATIVE)
--- NOTE | 2019-08-13 10:37 | DI.CT.S_ITS ---
PROCEDURE: CT CHEST WO CON INDICATIONS: fever, cough, SOB TECHNIQUE: Noncontrast 5 mm thick sections acquired from the pulmonary apices to the posterior costophrenic angles. 1 mm lung window, 5 mm thick coronal and sagittal and 7 mm axial MIP reformats were then acquired. For radiation dose reduction, the following was used: automated exposure control, adjustment of mA and/or kV according to patient size. COMPARISON: [facility], CR, XR CHEST 2V, 11/23/2018, 4:27. FINDINGS: Image quality: Diagnostic. Lungs and pleura: Patchy areas of groundglass attenuation are identified within it the lingula and right middle lobe. There may also be developing groundglass attenuation within the perihilar region of the right upper lobe. There may also be developing at patchy groundglass attenuation within the lateral margin of the left lower lobe. There is no lung mass. Mediastinum: Heart size is normal. No pericardial effusion. No mediastinal adenopathy by size criteria. Ever, borderline prominent mediastinal and hilar lymph nodes appear to be present. Thoracic aorta and central pulmonary arteries are normal in size. Esophagus is normal in caliber. No hiatal hernia. Bones and chest wall: No suspicious bony lesions. No vertebral body compression fractures. Postoperative changes at the base of the neck suggest prior thyroidectomy. No axillary or supraclavicular adenopathy by size criteria. Abdomen: Included portions of the upper abdomen demonstrate the liver to be hypodense when compared to the spleen. The liver may be enlarged. There is a questionable calcified gallstone. However, the gallbladder is not imaged. IMPRESSION: Subtle developing areas of groundglass attenuation within the lingula and right middle lobe suggests a developing multifocal atypical pneumonia. Please correlate clinically to exclude the possibility of COVID-19. Dictated by: Richy Corral M.D. on 08/13/2019 at 10:26 Approved by: Richy Corral M.D. on 08/13/2019 at 10:31
[2019-08-13 11:29] VITALS: BP 129/75; PULSE 105; RESP 16; O2SAT 89
[2019-08-15 18:07] LABS: COVID19 Sendout Not Detected (Not Detected)
== END 2019-08-13 12:10 | disposition home or self-care (01) ==
PROVIDERS: Emergency Provider Emergency Medicine
DX: J12.9 Viral pneumonia, unspecified (principal); R50.9 Fever, unspecified; R05 Cough; R06.02 Shortness of breath
CPT/HCPCS: 71045; 71250; 87502; 87635; 99283; 99284

== ENCOUNTER 2021-03-15 14:10 | Emergency (ER) | payer OTHER, SELFPAY ==
[2021-03-15 14:28] VITALS: BP 137/64; PULSE 109; RESP 18; TEMP 36.3; O2SAT 95; BMI 26.6
[2021-03-15 16:30] LABS: Bacteria Urine Moderate (10-30); Culture Indicated Urine Cult Not Indicated; RBC Urine None Seen (0-5/HPF); Squamous Epithelial Cell Urine 5-10 /HPF (0-5/HPF); WBC Urine 1-5/HPF (0-5/HPF)
--- NOTE | 2021-03-15 17:12 | ED.FEMALEGU ---
HPI - Female Genitourinary General Chief complaint: Urogenital-Female Stated complaint: Swollen knot in vaginal area Time Seen by Provider: 03/15/21 16:50 Source: patient Mode of arrival: Ambulatory Limitations: no limitations History of Present Illness HPI Narrative: 60-year-old female nonsmoker with history of asthma, hyperlipidemia presents with her daughter and a chief complaint of a bulging mass in her vagina that is been present for some time. It seems to be gradually getting worse and interferes with her ability to urinate or have bowel movements. She states that she urinates frequently but often times feels like she has not been able to empty her bladder. She denies fever chills, blood in her urine or back pain. Additionally when she has bowel movements she feels like the bulge gets worse and it seems to interfere. She denies any pain, she has no vaginal bleeding or discharge. 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 She denies any trauma or injury Related Data Home Medications Medication Instructions Recorded Confirmed ALBUTEROL SULFATE (Ventolin / 2 puff INH Q 4H #0 05/20/08 Proventil) Loratadine (Claritin) 10 mg PO Q DAY #0 05/20/08 levothyroxine 100 mcg tablet 100 mcg PO QAM #0 05/20/08 (Synthroid) atorvastatin 10 mg tablet (Lipitor) 10 mg PO HS #0 04/17/16 lisinopril 2.5 mg tablet 2.5 mg PO QDAY #0 04/17/16 metformin 850 mg tablet 850 mg PO BIDCC #0 04/17/16 montelukast 10 mg tablet 10 mg PO QDAY #0 04/17/16 Previous Rx's Medication Instructions Recorded doxycycline hyclate 100 mg tablet 100 mg PO BID #20 tab 11/23/18 prednisone 20 mg tablet 20 mg PO DAILY #5 tab 11/23/18 albuterol sulfate 90 mcg/actuation 2 inh INHALATION Q4H PRN #1 each 08/13/19 breath activated powder inhaler prednisone 20 mg tablet 20 mg PO DAILY #5 tab 08/13/19 Allergies Allergy/AdvReac Type Severity Reaction Status Date / Time No Known Drug Allergies Allergy Verified 03/15/21 14:28 Review of Systems Review of Systems Narrative: GENERAL: Denies chills, fatigue, malaise, fever, sweats. HEENT: Denies sinus pain, ear pain, sore throat, difficulty swallowing, dizziness. RESPIRATORY: Denies dyspnea, cough, wheezing, hemoptysis, sputum. CARDIOVASCULAR: Denies chest pain, palpitations, orthopnea, edema, GASTROINTESTINAL: See HPI MUSCULOSKELETAL: denies weakness, joint pain, or bony pain SKIN: Denies rash, skin lesions, or other NEUROLOGIC: Denies weakness, headache, numbness, change in speech, confusion, seizures, incoordination. PSYCHIATRIC: No concerning psychosocial issues. 12 point review of systems is negative except for those stated above Patient History Medical History Hypertension Hypothyroid alcohol intake frequency: holidays/special occasions only Substance Use Type: does not use Exam Narrative Exam Narrative: GEN: AOx3 and in mild distress EYES: Pupils are equal, round, and reactive to light and accommodation. Extraoccular muscles are intact bilaterally. There is no subconjunctival hemorrhage or exudate. CHEST: Lungs are clear to auscultation bilaterally and free of wheezes, rales, or rhonchi. Heart rate is regular rhythm, there are no murmurs, clicks, rubs, or gallops. There is no chest wall tenderness. ABD: Abdomen is soft and nontender. There is no guarding or rebound. Bowel sounds are normal in all 4 quadrants. There is no mass or organomegaly. PELVIC: cystocele noted, easily reduced. No pain, drainage or bleeding. Performed with patient's permission and female nursing retail helper at the bedside EXT: Full painless ROM of all extremities with no loss of sensation or strength. SKIN: Warm, pink, and dry. No erythema or rash Initial Vital Signs Initial Vital Signs: Vital Signs Temperature 97.3 F L 03/15/21 14:28 Pulse Rate 109 H 03/15/21 14:28 Respiratory Rate 18 03/15/21 14:28 Blood Pressure 137/64 03/15/21 14:28 Pulse Oximetry 95 03/15/21 14:28 Course Orders Ordered: ED Orders 03/15/21 16:00 Urine Microscopic Stat Vital Signs Vital signs: Vital Signs - 8 hr 03/15/21 14:28 Temperature 97.3 F L Pulse Rate 109 H Respiratory Rate 18 Blood Pressure 137/64 Pulse Oximetry 95 MDM - Female Genitourinary Lab Data Labs: Lab Results 10/23/21 Range/Units 16:00 Urine RBC None seen (0-5/HPF) Urine WBC 1-5/hpf (0-5/HPF) Ur Squamous Epith Cells 5-10 /hpf H (0-5/HPF) Urine Bacteria Moderate (10-30) H (None) Ur Culture Indicated? Cult not indicated Urine Dip Bedside Urine Glucose 1000 mg/dl Bedside Urine Bilirubin - Negative Bedside Urine Ketone - Negative Urine Specific [place] 1.020 Bedside Urine Occult Blood - Negative Bedside Urine pH 6.0 Bedside Urine Protein - Negative Bedside Urine Urobilinogen - Negative Bedside Urine Nitrite - Negative Bedside Urine Leukocytes - Negative Esterase Discharge Plan Departure Patient Disposition: Home Clinical Impression: Bladder cystocele Qualifiers: Cystocele location: midline Qualified Code(s): N81.11 - Cystocele, midline Instructions: DI for Cystocele/Rectocele Activity Restrictions/Additional Instructions: *You have been diagnosed with [cystocele] as we discussed, your history and physical exam are most consistent with a condition in which your pelvic floor his weekend allowing your bladder to drop down into your vaginal vault. *What to do: *Please continue to take your regular medications as directed. [ ] New medication prescriptions sent to your pharmacy: [ ] [ ] New medication written as a paper prescription [x ] No new medications given *Please follow up with your primary care provider in 2-3 days, call for an appointment. Let them know you were seen in the Emergency Department and that we ask that you be seen in follow up. We will electronically transmit a record of today's note if your PCP is in our system * also, as we discussed I will give you the contact information for our on-call personnel director who would be another good place to follow up *If you do not have a primary care provider please contact the [facility] Resource line at [phone]. They will ask some questions about your medical history and help get you set up with a doctor in the community. *Return to Emergency Department if you should have any new, worsening or concerning symptoms, such as [fever greater than 101 F, shaking chills, worsening pain, persistent vomiting or other bothersome symptoms] Prescriptions: No Action levothyroxine [Synthroid] 100 MCG tablet 100 mcg PO QAM Qty: 0 RF: 0 Loratadine (Claritin) 10 mg PO Q DAY Qty: 0 RF: 0 ALBUTEROL SULFATE (Ventolin / Proventil) 2 puff INH Q 4H Qty: 0 RF: 0 atorvastatin [Lipitor] 10 MG tablet 10 mg PO HS Qty: 0 RF: 0 metformin 850 MG tablet 850 mg PO BIDCC Qty: 0 RF: 0 montelukast 10 MG tablet 10 mg PO QDAY Qty: 0 RF: 0 lisinopril 2.5 MG tablet 2.5 mg PO QDAY Qty: 0 RF: 0 prednisone 20 mg tablet 20 mg PO DAILY Qty: 5 RF: 0 albuterol sulfate 90 mcg/actuation aerosol powdr breath activated 2 inh INHALATION Q4H PRN (Reason: shortness of breath or wheezing) Qty: 1 RF: 0 doxycycline hyclate 100 mg tablet 100 mg PO BID Qty: 20 RF: 0 prednisone 20 mg tablet 20 mg PO DAILY Qty: 5 RF: 0 Referrals: [facility] Resources [Outside] Miscellaneous,DoctorMD [Primary Care Provider] - Jose G Grajeda MD [Physician] -
== END 2021-03-15 18:08 | disposition home or self-care (01) ==
PROVIDERS: Emergency Provider Emergency Medicine
DX: N81.11 Cystocele, midline (principal)
CPT/HCPCS: 81003; 81015; 99282; 99283

== ENCOUNTER 2021-08-13 11:18 | Emergency (ER) | payer OTHER, SELFPAY ==
[2021-08-13 11:21] VITALS: BP 114/52; PULSE 108; RESP 16; O2SAT 95; BMI 23.3
--- NOTE | 2021-08-13 11:25 | DI.RAD.S_ITS ---
PROCEDURE: XR CHEST 1V INDICATIONS: chest pain TECHNIQUE: One view of the chest was acquired. COMPARISON: [facility], CT, CT CHEST WO CON, 08/13/2019, 10:50. [facility], CR, XR CHEST 1V, 08/13/2019, 9:29. [facility], CR, XR CHEST 2V, 11/23/2018, 4:27. FINDINGS: Surgical changes and devices: Thyroidectomy. Lungs and pleura: Left basilar opacity are likely scars or atelectasis. No pleural effusions or pneumothorax. Mediastinum: Mediastinal contours appear normal. Heart size is normal. Bones and chest wall: No suspicious bony lesions. Overlying soft tissues appear unremarkable. IMPRESSION: Left basilar opacity are likely scars or atelectasis. Dictated by: Ricardo Vences M.D. on 08/13/2021 at 11:54 Approved by: Ricardo Vences M.D. on 08/13/2021 at 11:56
[2021-08-13 11:50] LABS: Add Manual Diff / Slide Review NO; Basophils Absolute Auto 100 /uL (0-100); Basophils Percent Auto 0.4 % (0-2); Eosinophils Absolute Auto 100 /uL (0-450); Eosinophils Percent Auto 0.8 % (2-4); Hematocrit 39.3 % (36-46); Hemoglobin 13.4 g/dL (12.0-16.0); Lymphocytes Absolute Auto 1700 /uL (1100-4500); Lymphocytes Percent Auto 13.6 % (25-40); Mean Corpuscular HGB Conc 34.1 % (30-36); Mean Corpuscular Hemoglobin 29.2 PG (26-34); Mean Corpuscular Volume 85.4 fL (80-100); Monocytes Absolute Auto 900 /uL (0-900); Monocytes Percent Auto 7.7 % (3-14); Neutrophils Absolute Auto 9400 /uL (1500-7000); Neutrophils Percent Auto 77.5 % (50-75); Platelet Count 365 X10^3/uL (150-400); White Blood Cell Count 12.2 X10^3/uL (4.5-11.0)
[2021-08-13 11:51] LABS: INR 1.1 (0.9-1.3); Prothrombin Time 11.9 SECONDS (10.1-12.7)
[2021-08-13 11:55] LABS: PTT Partial Thromboplastin Tim 30 SECONDS (26.4-36.2)
[2021-08-13 11:59] LABS: Alanine Aminotransferase 11 IU/L (<35); Albumin 4.2 g/dL (3.5-5.0); Albumin Globulin Ratio 1.2 (1.0-2.8); Alkaline Phosphatase 78 U/L (38-126); Aspartate Aminotransferase 18 IU/L (14-36); BUN Creatinine Ratio 18.5 (6-22); Bilirubin Total 1.1 mg/dL (0.2-1.3); Blood Urea Nitrogen 10 mg/dL (7-17); Calcium 9.4 mg/dL (8.4-10.2); Carbon Dioxide 28 mmol/L (22-32); Chloride 99 mmol/L (98-107); Creatine Kinase < 20 U/L (30-135); Estimated Glomerular Filt Rate > 60.0 mL/min (>60); Globulin 3.4 g/dL (1.7-4.1); Glucose 144 mg/dL (80-110); HEMOLYSIS < 15 (0-50); Lipase 107 U/L (23-300); Magnesium 2.1 mg/dL (1.6-2.3); Sodium 138 mmol/L (137-145); Total Protein 7.6 g/dL (6.3-8.2)
[2021-08-13 12:10] LABS: Troponin I < 0.012 ng/mL (0.01-0.034)
[2021-08-13 12:13] VITALS: BP 110/60; PULSE 104; O2SAT 92
[2021-08-13 12:30] VITALS: BP 101/58; PULSE 102; RESP 18; O2SAT 91
[2021-08-13 13:00] VITALS: BP 101/61; PULSE 101; RESP 14; O2SAT 92
--- NOTE | 2021-08-13 13:06 | ED.GENADULT ---
HPI - General Adult General Chief complaint: Diabetic Problem Stated complaint: diabetes levels low, dizzy Time Seen by Provider: 08/13/21 12:44 Source: patient Mode of arrival: Ambulatory Limitations: no limitations History of Present Illness HPI narrative: Patient is a 61-year-old female. Is a type 2 diabetic. States she does not take her blood sugar on a regular basis. She states that for the past couple days she has had quite a bit of diarrhea. No recent travel. No vomiting. Is still tolerating oral intake but states she feels like she is dehydrated. She is feeling dizzy and somewhat lightheaded thinks that her blood sugars low. No recent antibiotics. Related Data Home Medications Medication Instructions Recorded Confirmed ALBUTEROL SULFATE (Ventolin / 2 puff INH Q 4H #0 05/20/08 Proventil) Loratadine (Claritin) 10 mg PO Q DAY #0 05/20/08 levothyroxine 100 mcg tablet 100 mcg PO QAM #0 05/20/08 (Synthroid) atorvastatin 10 mg tablet (Lipitor) 10 mg PO HS #0 04/17/16 lisinopril 2.5 mg tablet 2.5 mg PO QDAY #0 04/17/16 metformin 850 mg tablet 850 mg PO BIDCC #0 04/17/16 montelukast 10 mg tablet 10 mg PO QDAY #0 04/17/16 Previous Rx's Medication Instructions Recorded doxycycline hyclate 100 mg tablet 100 mg PO BID #20 tab 11/23/18 prednisone 20 mg tablet 20 mg PO DAILY #5 tab 11/23/18 albuterol sulfate 90 mcg/actuation 2 inh INHALATION Q4H PRN #1 each 08/13/19 breath activated powder inhaler prednisone 20 mg tablet 20 mg PO DAILY #5 tab 08/13/19 Allergies Allergy/AdvReac Type Severity Reaction Status Date / Time No Known Drug Allergies Allergy Verified 08/13/21 11:20 Review of Systems Constitutional Constitutional: Reports system reviewed and no additional complaints, except as documented Cardiovascular Cardiovascular: Reports system reviewed and no additional complaints, except as documented Respiratory Respiratory: Reports system reviewed and no additional complaints, except as documented Gastrointestinal Gastrointestinal: Reports as per HPI and Reports system reviewed and no additional complaints, except as documented Genitourinary Genitourinary: Reports system reviewed and no additional complaints, except as documented and Reports as per HPI Integumentary/Breasts Skin/Breast: Reports system reviewed and no additional complaints, except as documented Neurologic Neurologic: Reports system reviewed and no additional complaints, except as documented and Reports as per HPI Hematologic/Lymphatic On Anticoagulants: No Patient History Medical History Hypertension Hypothyroid Social History Smoking Status: Never smoker Smoking Status: Never smoker alcohol intake frequency: holidays/special occasions only Substance Use Type: does not use Exam Initial Vital Signs Initial Vital Signs: Vital Signs Pulse Rate 108 H 08/13/21 11:21 Respiratory Rate 16 08/13/21 11:21 Blood Pressure 114/52 L 08/13/21 11:21 Pulse Oximetry 95 08/13/21 11:21 HENMT Head: normal to inspection and normocephalic Mouth: No moist mucous membranes Resp Effort & Inspection: normal respiratory effort Auscultation: clear to auscultation bilaterally Cardio Rate: regular rate Rhythm: regular rhythm GI Inspection: normal to inspection Palpation: soft, No firm and No tender Skin General: no rashes or lesions noted Neuro General: patient alert, patient awake and moves all extremities Speech: speech normal Extrem General: normal to inspection and capillary refill normal Course Orders Ordered: ED Orders 08/13/21 11:25 XR chest 1V Stat 08/13/21 11:30 Complete Blood Count AUTO DIFF Stat Comprehensive Metabolic Panel Stat Lipase Stat Magnesium Stat Partial Thromboplastin Time Stat Prothrombin Time INR Stat Troponin & CK Cardiac Panel Stat EKG-12 Lead Stat Discontinued Medications Sodium Chloride (Normal Saline 0.9%) 1,000 mls @ 1,000 mls/hr IV BOLUS ONE Stop: 08/13/21 14:04 Last Admin: 08/13/21 13:19 Dose: 1,000 mls/hr Documented by: KBRRUBYE Vital Signs Vital signs: Vital Signs - 8 hr 08/13/21 11:21 08/13/21 12:13 08/13/21 12:30 Pulse Rate 108 H 104 H 102 H Respiratory Rate 16 18 Blood Pressure 114/52 L 110/60 101/58 L Pulse Oximetry 95 92 91 08/13/21 13:00 08/13/21 14:59 Pulse Rate 101 H 92 H Respiratory Rate 14 18 Blood Pressure 101/61 100/57 L Pulse Oximetry 92 96 Medical Decision Making Lab Data Lab results reviewed: Yes I reviewed the patient's lab results. Result diagrams: 08/13/21 11:30 08/13/21 11:30 Labs: Lab Results 08/13/21 08/13/21 08/13/21 Range/Units 11:30 11:30 11:30 WBC 12.2 H (4.5-11.0) X10^3/uL RBC 4.60 (4.0-5.2) X10^6/uL Hgb 13.4 (12.0-16.0) g/dL Hct 39.3 (36-46) % MCV 85.4 (80-100) fL MCH 29.2 (26-34) PG MCHC 34.1 (30-36) % RDW 13.0 (11.6-14.8) % Plt Count 365 (150-400) X10^3/uL Neut % (Auto) 77.5 H (50-75) % Lymph % (Auto) 13.6 L (25-40) % Gaston % (Auto) 7.7 (3-14) % Eos % (Auto) 0.8 L (2-4) % Baso % (Auto) 0.4 (0-2) % Neut # (Auto) 9400 H (9888-1406) /uL Lymph # (Auto) 1700 (5959-4335) /uL Gaston # (Auto) 900 (0-900) /uL Eos # (Auto) 100 (0-450) /uL Baso # (Auto) 100 (0-100) /uL PT 11.9 (10.1-12.7) SECONDS INR 1.1 (0.9-1.3) APTT 30 (26.4-36.2) SECONDS Sodium 138 (137-145) mmol/L Potassium 3.0 L (3.4-5.1) mmol/L Chloride 99 (98-107) mmol/L Carbon Dioxide 28 (22-32) mmol/L BUN 10 (7-17) mg/dL Creatinine 0.54 (0.52-1.04) mg/dL Estimated GFR > 60.0 (>60) mL/min BUN/Creatinine Ratio 18.5 (6-22) Glucose 144 H (80-110) mg/dL Calcium 9.4 (8.4-10.2) mg/dL Magnesium 2.1 (1.6-2.3) mg/dL Total Bilirubin 1.1 (0.2-1.3) mg/dL AST 18 (14-36) IU/L ALT 11 (<35) IU/L Alkaline Phosphatase 78 (38-126) U/L Total Creatine Kinase < 20 L (30-135) U/L CK-MB (CK-2) TNP CK-MB (CK-2) Rel Index TNP Troponin I < 0.012 (0.01-0.034) ng/mL Total Protein 7.6 (6.3-8.2) g/dL Albumin 4.2 (3.5-5.0) g/dL Globulin 3.4 (1.7-4.1) g/dL Albumin/Globulin Ratio 1.2 (1.0-2.8) Lipase 107 (23-300) U/L Point of Care Testing Glucose POC 134 Point of care testing: Point of Care Testing Glucose POC 134 Imaging Data Chest x-ray: Radiologist's Impression: [address] [address] XRay Report Signed Patient: Radha Muñoz MR#: [id number] : 1960 Acct:[id number] Age/Sex: 61 / F Date of Service: 08/13/21 Loc: ED Accession Number: [id number] ?? Procedure: XR chest 1V Ordering Provider: Hal Nolan D.O. PROCEDURE:? XR CHEST 1V ? INDICATIONS:? chest pain ? TECHNIQUE:? One view of the chest was acquired.? ? COMPARISON:? [facility], CT, CT CHEST WO CON, 08/13/2019, 10:50.? [facility], CR, XR CHEST 1V, 08/13/2019, 9:29.? [facility], CR, XR CHEST 2V, 11/23/2018, 4:27. ? FINDINGS:? ? Surgical changes and devices:? Thyroidectomy.? ? Lungs and pleura:? Left basilar opacity are likely scars or atelectasis.? No pleural effusions or pneumothorax.? ? Mediastinum:? Mediastinal contours appear normal.? Heart size is normal.? ? Bones and chest wall:? No suspicious bony lesions.? Overlying soft tissues appear unremarkable.? ? IMPRESSION:? Left basilar opacity are likely scars or atelectasis. ? ? Dictated by: Ricardo Vences M.D. on 08/13/2021 at 11:54 ? ? Approved by: Ricardo Vences M.D. on 08/13/2021 at 11:56 ECG Data Attestation: I personally reviewed and interpreted this ECG as follows: Interpretation: Sinus tachycardia Ventricular rate 109 Normal axis Normal QRS Normal QTC No ST T wave changes MDM Narrative Medical decision making narrative: Patient is mildly tachycardic does have dry mucous membranes and has been having multiple loose stools. Her blood sugar is only slightly elevated. Low suspicion for DKA. Patient was given fluids. No indication for antibiotics. Will discharge home in she was instructed she should start taking her blood sugar on a regular basis. She was given return precautions. She expressed understanding and agreement. Discharge Plan Departure Patient Disposition: Home Clinical Impression: Diabetes mellitus, Dehydration, Diarrhea Instructions: Diarrhea Activity Restrictions/Additional Instructions: I do recommend that you continue to take all of your medications as directed. It is important that you take your blood sugars at home on a regular basis. Contact your primary doctor for a follow-up. Return to the emergency department for any new or worsening symptoms. Prescriptions: No Action levothyroxine [Synthroid] 100 MCG tablet 100 mcg PO QAM Qty: 0 0RF Loratadine (Claritin) 10 mg PO Q DAY Qty: 0 0RF ALBUTEROL SULFATE (Ventolin / Proventil) 2 puff INH Q 4H Qty: 0 0RF atorvastatin [Lipitor] 10 MG tablet 10 mg PO HS Qty: 0 0RF metformin 850 MG tablet 850 mg PO BIDCC Qty: 0 0RF montelukast 10 MG tablet 10 mg PO QDAY Qty: 0 0RF lisinopril 2.5 MG tablet 2.5 mg PO QDAY Qty: 0 0RF prednisone 20 mg tablet 20 mg PO DAILY Qty: 5 0RF Rx Instructions: administer with food or milk albuterol sulfate 90 mcg/actuation aerosol powdr breath activated 2 inh INHALATION Q4H PRN (Reason: shortness of breath or wheezing) Qty: 1 0RF Rx Instructions: administer with spacer doxycycline hyclate 100 mg tablet 100 mg PO BID Qty: 20 0RF prednisone 20 mg tablet 20 mg PO DAILY Qty: 5 0RF Rx Instructions: administer with food or milk Referrals: Miscellaneous,Doctor, MD [Primary Care Provider] -
[2021-08-13] MEDS: SODIUM CHLORIDE 0.9% 1,000 ML 1000 ML IV (13:19)
[2021-08-13 14:59] VITALS: BP 100/57; PULSE 92; RESP 18; O2SAT 96
== END 2021-08-13 15:00 | disposition home or self-care (01) ==
PROVIDERS: Emergency Provider Emergency Medicine
DX: E11.9 Type 2 diabetes mellitus without complications (principal); E86.0 Dehydration; R19.7 Diarrhea, unspecified; Z79.84 Long term (current) use of oral hypoglycemic drugs
CPT/HCPCS: 36415; 71045; 80053; 82550; 82962; 83690; 83735; 84484; 85025; 85610; 85730; 93005; 99284